=== PATIENT | male | born 2000 | race African-American/Black ===

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

== ENCOUNTER 2018-10-02 08:35 | Emergency (ER) | payer MEDICAID ==
[~2018-10-02] VITALS: Ht 180.3 cm; Wt 63.9 kg
[2018-10-02] MEDS ORDERED: CEFTRIAXONE SODIUM 250 MG/VIAL IM ONE (11:30)
[2018-10-02] MEDS ORDERED: AZITHROMYCIN 500 MG TABLET PO SCH (11:30)
[2018-10-02] MEDS ORDERED: LIDOCAINE HCL 1% 20ML VIAL (Pyxis) INJ INFIL ONE (11:30)
[2018-10-02 11:52] LABS: CLARITY URINE CLEAR (CLEAR); COLOR URINE YELLOW (YELLOW); KETONES URINE NEGATIVE (NEGATIVE); LEUKOCYTE ESTERASE URINE TRACE (NEGATIVE); NITRITE URINE NEGATIVE (NEGATIVE); OCCULT BLOOD URINE NEGATIVE (NEGATIVE); PROTEIN URINE NEGATIVE (NEGATIVE); SPECIFIC GRAVITY URINE 1.022 (1.005-1.030)
[2018-10-02] MEDS ORDERED: IBUPROFEN 600MG TABLET PO ONE (13:30)
[2018-10-02 13:57] VITALS: BP 126/84
== END 2018-10-02 13:49 | disposition home or self-care (01) ==
LOC: ER 08:48
DX: N34.2 Other urethritis (principal); R36.9 Urethral discharge, unspecified; F17.200 Nicotine dependence, unspecified, uncomplicated; F12.10 Cannabis abuse, uncomplicated; Z79.899 Other long term (current) drug therapy
CPT/HCPCS: 81003; 87086; 96372; 99283; J0696; J3490